=== PATIENT | male | born 1985 | race Caucasian/White ===

== ENCOUNTER 2019-02-04 03:47 | Emergency (ER) | payer OTHER ==
[~2019-02-04] VITALS: Ht 188 cm; Wt 83.9 kg
[2019-02-04] MEDS ORDERED: SERT25 PO (04:29)
[2019-02-04] MEDS ORDERED: OMEPRAZOLE MAGN20 MG PO (04:29)
[2019-02-04] MEDS ORDERED: CEPH500 PO (04:39)
== END 2019-02-04 05:07 | disposition home or self-care (01) ==
LOC: ER 03:47
DX: K08.89 Other specified disorders of teeth and supporting structures (principal); Z87.891 Personal history of nicotine dependence; Z79.899 Other long term (current) drug therapy
CPT/HCPCS: 96372; 99283-25; J1885

== ENCOUNTER 2019-12-30 07:34 | Day surgery (SDC) | payer OTHER ==
[~2019-12-30] VITALS: Ht 188 cm; Wt 89.8 kg
[~2019-12-30 07:34] MED LIST: CEPH500 PO; DULO60 PO; LATUDA20 MG PO; OMEP20ER PO; OMEPRAZOLE MAGN20 MG PO; SERT25 PO
== END 2019-12-30 10:17 | disposition home or self-care (01) ==
LOC: ORSCSDS 07:34
PROVIDERS: Student in an Organized Health Care Education/Training Program
PROC: 0DBL8ZX Excision of Transverse Colon, Via Natural or Artificial Opening Endoscopic, Diagnostic (ICD-10-PCS; principal; 2019-12-30 08:45)
PROC: 0DBN8ZX Excision of Sigmoid Colon, Via Natural or Artificial Opening Endoscopic, Diagnostic (ICD-10-PCS; principal; 2019-12-30 08:45)
PROC: 3E0H8GC Introduction of Other Therapeutic Substance into Lower GI, Via Natural or Artificial Opening Endoscopic (ICD-10-PCS; principal; 2019-12-30 08:45)
PROC: 0DBB8ZX Excision of Ileum, Via Natural or Artificial Opening Endoscopic, Diagnostic (ICD-10-PCS; principal; 2019-12-30 08:45)
PROC: 0DB58ZX Excision of Esophagus, Via Natural or Artificial Opening Endoscopic, Diagnostic (ICD-10-PCS; 2019-12-30 08:45)
PROC: 0DB68ZX Excision of Stomach, Via Natural or Artificial Opening Endoscopic, Diagnostic (ICD-10-PCS; 2019-12-30 08:45)
PROC: 0DB98ZX Excision of Duodenum, Via Natural or Artificial Opening Endoscopic, Diagnostic (ICD-10-PCS; 2019-12-30 08:45)
DX: K62.5 Hemorrhage of anus and rectum (principal); K29.70 Gastritis, unspecified, without bleeding; B96.81 Helicobacter pylori [H. pylori] as the cause of diseases classified elsewhere; K63.5 Polyp of colon; D12.5 Benign neoplasm of sigmoid colon; R13.10 Dysphagia, unspecified; R10.9 Unspecified abdominal pain; R12 Heartburn; F41.9 Anxiety disorder, unspecified; K21.9 Gastro-esophageal reflux disease without esophagitis; F17.210 Nicotine dependence, cigarettes, uncomplicated; Z79.899 Other long term (current) drug therapy
CPT/HCPCS: 88305; 88342; J0461; J2250; J2405; J2704; J7040; J7120

== ENCOUNTER 2020-11-20 11:36 | Day surgery (SDC) | payer OTHER ==
[~2020-11-20] VITALS: Ht 188 cm; Wt 85.8 kg
--- NOTE | 2020-11-20 13:37 | NUR ---
11/20/20 1337 Emilie Farris BUPIVACAINE 0.5% 5 MLS INJECTED AT OPSITE BY DR CHAWLA FOR PAIN CONTROL. MULTI DOSE VIAL DIVIDED IN OR BY RN.
--- NOTE | 2020-11-20 14:34 | NUR ---
11/20/20 1434 JESSIKA ESCALANTE PT EATING MICHAEL CRACKERS AND DRINKING FLUIDS. STATES PAIN CURRENTLY 10/28
== END 2020-11-20 15:15 | disposition home or self-care (01) ==
LOC: ORSCSDS 11:36
PROVIDERS: Orthopaedic Surgery
PROC: 0PSP34Z Reposition Right Metacarpal with Internal Fixation Device, Percutaneous Approach (ICD-10-PCS; principal; 2020-11-20 12:45)
DX: S62.316A Displaced fracture of base of fifth metacarpal bone, right hand, initial encounter for closed fracture (principal); K21.9 Gastro-esophageal reflux disease without esophagitis; F32.9 Major depressive disorder, single episode, unspecified; Z79.899 Other long term (current) drug therapy
CPT/HCPCS: A9270; C1769; J0171; J0690; J1885; J2405; J2704; J3010; J7120

== ENCOUNTER 2023-08-12 05:51 | Day surgery (SDC) | payer OTHER ==
[2023-08-12] VITALS (11 sets, daily range): BP systolic 101–124; BP diastolic 62–76
[~2023-08-12] VITALS: Ht 183 cm; Wt 88.0 kg
[~2023-08-12 05:51] MED LIST changes: +Atarax10 MG PO; +Celexa20 MG PO; +LATUDA20 M1 PO; +PEPCID20 MG PO; +PROMETHAZINE12.5 M1 PO; +QUET25 PO
[2023-08-12] MEDS ORDERED: Lactated Ringer's 1,000 ML IV SCH (06:35)
[2023-08-12] MEDS ORDERED: CeFAZolin Sodium 2,000 MG in NS 100 ML IV SCH (06:35)
[2023-08-12] MEDS ORDERED: Bupivacaine 0.5% HCl 5 MG/ML 30MLVIAL ONE (07:11)
[2023-08-12] MEDS ORDERED: Ipratropium/Albuterol SulF 2.5-0.5MG/3 ML Amp INH ONE (07:15)
[2023-08-12] MEDS ORDERED: propofoL 40 ML IV ONE (07:16)
[2023-08-12] MEDS ORDERED: Lidocaine HCl 2% 20 ML MDV ONE (07:16)
[2023-08-12] MEDS ORDERED: FentaNYL Citrate 50 MCG/ML 2 ML Injection ONE ×2 (07:37→08:04)
[2023-08-12] MEDS ORDERED: propofoL 20 ML IV ONE (07:37)
[2023-08-12] MEDS ORDERED: Dexamethasone Sod Phos 10 MG/ML 1ML VIAL ONE (07:47)
[2023-08-12] MEDS ORDERED: Ondansetron HCl 2 MG / ML 2ML Vial ONE (08:00)
[2023-08-12] MEDS ORDERED: HYDROcodone 5-APAP 325 TAB PO PRN (09:05)
--- NOTE | 2023-08-12 09:27 | NUR ---
0923 REPORT RECEIVED FROM CADEN MCKAY. VSS. PT ON RA. PT ABLE TO REPOSITION SELF IN BED. PT DENIES PAIN, NAUSEA OR OTHER DISCOMFORTS. PT RESTING QUIETLY.
--- NOTE | 2023-08-12 09:52 | NUR ---
Patient up to Ambulate independently. Gait steady. VSS AND CONSISTENT WITH PT BASELINE. PT HAS NO COMPLAINTS AND VERBALIZES READINESS TO GO HOME. PT KEMAR PO FOOD AND FLUIDS. Discharge instructions reviewed with patient AND HIS SPOUSE. Patient AND HIS SPOUSE verbalize understanding. Copy given to patient to take home. Dressing to procedure site clean, dry, intact with no visible drainage, swelling, erythema or bruising noted. Patient States Post-Procedure ride home has been arranged. Discharged via wheelchair to private car for ride home. PT BELONGINGS RETURNED TO PT.
== END 2023-08-12 09:56 | disposition home or self-care (01) ==
LOC: ORSCMMR 05:51 → ORD 07:30 → ORSCMMR 07:30
PROVIDERS: Surgery
PROC: 0YU50JZ Supplement Right Inguinal Region with Synthetic Substitute, Open Approach (ICD-10-PCS; principal; 2023-08-12 07:30)
DX: K40.90 Unilateral inguinal hernia, without obstruction or gangrene, not specified as recurrent (principal); D17.6 Benign lipomatous neoplasm of spermatic cord; K21.9 Gastro-esophageal reflux disease without esophagitis; F17.210 Nicotine dependence, cigarettes, uncomplicated; F41.9 Anxiety disorder, unspecified; F32.A Depression, unspecified; Z79.899 Other long term (current) drug therapy
CPT/HCPCS: C1781; J0690; J1100; J2405; J2704; J3010; J7120

== ENCOUNTER → 2024-01-02 | Outpatient (CLI) | payer OTHER ==
[2024-01-05 14:59] LABS: CALPROTECTIN,FECAL 50 ug/g (<=49)
== END ==
LOC: LAB SHORT 09:37 → LAB 09:37
PROVIDERS: Family Medicine
DX: K92.1 Melena (principal)
CPT/HCPCS: 83993

== ENCOUNTER → 2024-01-29 | Outpatient (CLI) | payer OTHER ==
[2024-01-29 15:41] LABS: Stool Occult Bld Immuno 1 Positive (NEGATIVE)
== END | disposition home or self-care (01) ==
LOC: LAB SHORT 08:00 → LAB 08:00
PROVIDERS: Family Medicine
DX: D64.9 Anemia, unspecified (principal)
CPT/HCPCS: G0328